=== PATIENT | female | born 1945 | race Caucasian/White ===

== ENCOUNTER 2023-04-07 22:30 | Emergency (ER) | payer OTHER ==
[~2023-04-07] VITALS: Ht 165.1 cm; Wt 104.3 kg
[~2023-04-07 22:30] MED LIST: ACETAMINOPHEN-H1 TA2 PO; ATENOLOL50 M1 PO; LISINOPRIL20 MG PO; PANTOPRAZOLE SO40 MG PO
== END 2023-04-08 03:39 | disposition home or self-care (01) ==
LOC: ED 22:30
DX: S86.912A Strain of unspecified muscle(s) and tendon(s) at lower leg level, left leg, initial encounter (principal); S00.83XA Contusion of other part of head, initial encounter; S60.222A Contusion of left hand, initial encounter; S09.90XA Unspecified injury of head, initial encounter; I10 Essential (primary) hypertension; Z88.2 Allergy status to sulfonamides; Z88.8 Allergy status to other drugs, medicaments and biological substances; Z98.51 Tubal ligation status; Z98.890 Other specified postprocedural states; W01.0XXA Fall on same level from slipping, tripping and stumbling without subsequent striking against object, initial encounter; Y93.89 Activity, other specified; Y92.009 Unspecified place in unspecified non-institutional (private) residence as the place of occurrence of the external cause; Y99.8 Other external cause status